=== PATIENT | male | born 1945 | race Asian ===

== ENCOUNTER 2018-04-16 02:58 | Emergency (ER) | payer BC, OTHER ==
[2018-04-16] MEDS: SILVER NITRATE SWAB TOP (03:30)
[2018-04-16] MEDS: LIDOCAINE 2%/EPI (MDV) 20ML INJ INJ (03:30)
[2018-04-16] MEDS: ONDANSETRON (ODT) 4 MG TAB ODT (04:53)
[2018-04-16 05:05] LABS: ADD MAN DIFF? NO
[2018-04-16 05:06] LABS: WHITE BLOOD COUNT 10.5 10^3/ul (4.8-10.8)
[2018-04-16 05:06] LABS: BASOPHILS % 0.3 % (0.0-2.0); EOSINOPHILS # 0.3 10^3/ul (0.0-0.5); EOSINOPHILS % 2.4 % (0.0-7.0); HEMATOCRIT 40.4 % (42.0-52.0); HEMOGLOBIN 12.7 g/dl (14.0-18.0); LYMPHOCYTES # 1.2 10^3/ul (0.8-2.9); LYMPHOCYTES % 11.4 % (15.0-51.0); MEAN CORPUSCULAR HEMOGLOBIN 29.1 pg (29.0-33.0); MEAN CORPUSCULAR HGB CONC 31.4 g/dl (32.0-37.0); MEAN CORPUSCULAR VOLUME 92.4 fl (82.0-101.0); MEAN PLATELET VOLUME 9.9 fl (7.4-10.4); MONOCYTE # 0.9 10^3/ul (0.3-0.9); MONOCYTES % 8.1 % (0.0-11.0); NEUTROPHIL # 8.1 10^3/ul (1.6-7.5); NEUTROPHILS % 77.3 % (39.0-77.0); PLATELET COUNT 345 10^3/UL (140-415); RED BLOOD COUNT 4.37 10^6/ul (4.70-6.10); RED CELL DISTRIBUTION WIDTH 12.9 % (11.5-14.5)
[2018-04-16 05:24] LABS: ALANINE AMINOTRANSFERASE 17 IU/L (13-69); ALBUMIN 4.5 g/dl (3.3-4.9); ALBUMIN/GLOBULIN RATIO 1.21; ALKALINE PHOSPHATASE 60 IU/L (42-121); ANION GAP 9 (5-13); ASPARTATE AMINO TRANSFERASE 29 IU/L (15-46); BILIRUBIN,INDIRECT 0.4 mg/dl (0-1.1); BILIRUBIN,TOTAL 0.4 mg/dl (0.2-1.3); BLOOD UREA NITROGEN 22 mg/dl (7-20); CALCIUM 9.5 mg/dl (8.4-10.2); CARBON DIOXIDE 31 mmol/L (21-31); CHLORIDE 103 mmol/L (97-110); CREATININE 1.03 mg/dl (0.61-1.24); GLUCOSE 135 mg/dl (70-220); POTASSIUM 4.7 mmol/L (3.5-5.1); SODIUM 143 mmol/L (135-144); TOTAL PROTEIN 8.2 g/dl (6.1-8.1)
[2018-04-16 05:26] LABS: INR 0.87; PROTIME 11.9 Sec (11.9-14.9); PT RATIO 0.9
[2018-04-16 05:27] LABS: PARTIAL THROMBOPLASTIN TIME 32.3 Sec (23.0-35.0)
== END 2018-04-16 06:38 | disposition home or self-care (01) ==
LOC: FTE 06:38
DX: R04.0 Epistaxis (principal); J32.9 Chronic sinusitis, unspecified; R51 Headache
CPT/HCPCS: 36415; 70450; 80053; 85025; 85610; 85730; 99284-25

== ENCOUNTER 2018-04-16 12:49 | Emergency (ER) | payer BC, OTHER ==
[2018-04-16] MEDS: ONDANSETRON (ODT) 4 MG TAB ODT (16:01)
[2018-04-16] MEDS: HYDROCODONE/APAP (5/325) TAB PO (16:01)
== END 2018-04-16 17:00 | disposition home or self-care (01) ==
LOC: FTE 12:49
DX: R04.0 Epistaxis (principal)
CPT/HCPCS: 30903; 99283-25